=== PATIENT | female | born 1975 | race Caucasian/White ===

== ENCOUNTER 2016-07-08 08:11 | Emergency (ER) | payer BC ==
[2016-07-08 08:20] VITALS: BP 118/60
--- NOTE | 2016-07-08 08:49 | ERNOTE ---
Lower Extremity HPI - Narrative Date of Service: 07/08/16 - General Lower Extremities Pain: ankle: right - pain Time Seen by Provider: 07/08/16 08:27 Source: patient - right ankle pain Exam Limitations: physical impairment - Immun/Allergies/Home Medications Immunizations: IMMUNIZATION HX Immunizations Up to Date Yes History of Influenza Vaccine No Hx Pneumococcal Vaccination No Allergies/Adverse Reactions: Allergies Allergy/AdvReac Type Severity Reaction Status Date / Time No Known Allergies Allergy Verified 07/08/16 08:21 Home Medications: HOME MEDICATIONS NK [No Home Medication] 05/18/15 [Last Taken Unknown] - History of Present Illness Narrative: patient was walking and had tripped over a toy and rolled her ankle on the right Date (Duration): 07/08/16 Occurred: just prior to arrival Method of Injury: Reports: twisted Reason for Fall: Reports: tripped Loss of Consciousness: Reports: no loss of consciousness Modifying Factors - (Improves): Reports: cold therapy, rest Modifying Factors - (Worsens): Reports: cold therapy Other Injuries: Reports: none Review of Systems - Narrative Narrative: patient able to walk with pain - Review of Systems Constitutional: Present: See HPI EYE: Present: no symptoms reported ENT: Present: no symptoms reported Respiratory: Present: no symptoms reported Cardiology: Present: no symptoms reported Gastrointestinal/Abdominal: Present: no symptoms reported Genitourinary: Present: no symptoms reported Musculoskeletal: Present: other - ankle pain Skin: Present: no symptoms reported Neurological: Present: no symptoms reported Endocrine: Present: no symptoms reported Hematologic/Lymphatic: Present: no symptoms reported Psych: Present: no symptoms reported All Other Systems: All systems neg except as marked - Narrative Narrative: all pmh, psh, shx - Patient's Past Medical History Patient History - Medical: No pertinent hx Patient History - Cardiac/Respiratory: No pertinent hx Patient History - Cancer: No Hx of Cancer Patient History - Surgical Procedures: No surgical history Patient History - Other: None LMP (Calendar): 06/11/16 - Social History Living Situations: home Abuse History: No History of abuse Psych History: No pertinent hx Smoking Status: Never smoker Alcohol Use: none Drug Use: none - Immunizations Immunizations Up to Date: Yes Hx Pneumococcal Vaccination: No History of Influenza Vaccine: No Physical Exam - Physical Exam General Appearance: Present: wd/wn, alert, no apparent distress Eye Exam: Normal inspection: bilateral, PERRL: bilateral, EOMI: bilateral Ears, Nose, Throat: Present: normal ENT inspection Neck: Present: normal inspection, nontender Respiratory: Present: no respiratory distress, normal breath sounds Cardiovascular/Chest: Present: regular rate, rhythm, no murmur Gastrointestinal/Abdominal: Present: other - exam deferred Extremity Exam: Present: decreased range of motion, bony tenderness, joint swelling, other - ankle Skin Exam: Present: normal color Lymphatic Exam: Present: no adenopathy Pelvic Exam: Present: deferred ED Progress - Date and Time Seen: Date and Time: 07/08/16 08:55 t 07/08/16 13:58 decline pain meds took ibuprofen prior to arrival - Vital Signs Patient's Vital Signs:: I have reviewed the patient's vital signs. Vital Signs: Vital Signs 07/08/16 08:16 Temperature 36.5 C Pulse Rate 80 Respiratory 16 Rate Blood Pressure 118/60 O2 Sat by Pulse 98 Oximetry - X-Ray X-Ray #1 X-Ray: mild soft tissue swelling, neg fx Interpretation: Interp. by me, Reviewed by me - Progress/Reassessment Chief Complaint: Ankle Injury/ Pain Progress:: Unchanged - declined medication Progress Note-Subjective: 07/08/16 08:57 mamie wrap applied Plan - Plan Plan: stable for discharge, I did inform patient of xray results Departure Clinical Impression: Ankle sprain Qualifiers: Encounter type: initial encounter Involved ligament of ankle: deltoid ligament Laterality: right Qualified Code(s): S93.421A - Sprain of deltoid ligament of right ankle, initial encounter - Departure Disposition: Home self-care Condition: Good Instructions: RICE for Routine Care of Injuries, [id number], Acute Ankle Sprain With Phase II Rehab-SportsMed Additional Instructions: Use ibuprofen 600 to 800mg three times a day with food
--- OUTSIDE RECORDS SUMMARY | 2016-07-08 11:31 | XMS REPORT | Continuity of Care Document ---
:1975 Demographics Phone Unavailable Preferred Language Unknown Marital Status Unknown Bahai Affiliation Unknown Race Unknown Ethnic Group Unknown Author Organization [facility] ([facility]) [place] [address] Phone [phone] Care Team Providers Name Role Phone Unavailable Primary Care Provider Unavailable Source Comments This disclosure is being made pursuant to the Care Everywhere program, applicable federal and state laws, and may not contain all informaitonavailable regarding this patient.[facility] ([facility]) Active Allergies and Adverse Reactions Not on File Current Medications Not on file Active Problems Not on file Social History Tobacco Use Types Packs/Day Years Used Date Never Assessed Plan of Care Health Maintenance Due Date Last Done Comments Hepatitis B Vaccine (1 of 3 - Primary Series) 1974 Tdap Vaccine 1985 Lipid Disorder Screening 1992 MMR Vaccine 1992 Td Vaccine 1992 Cervical Cancer Screening 2004 Mammogram 2014 Influenza Vaccine: Seasonal (#1) 09/09/2015 Results from Last 3 Months Not on file
== END 2016-07-08 09:10 | disposition home or self-care (01) ==
LOC: ER 08:11
DX: S93.421A Sprain of deltoid ligament of right ankle, initial encounter (principal); W01.0XXA Fall on same level from slipping, tripping and stumbling without subsequent striking against object, initial encounter; Y93.9 Activity, unspecified; Y92.9 Unspecified place or not applicable